=== PATIENT | female | born 1955 | race Caucasian/White ===

== ENCOUNTER → 2017-09-09 | Outpatient (CLI) | payer OTHER ==
--- NOTE | 2017-09-09 16:03 | MRI ---
MRI left shoulder without contrast INDICATION: Shoulder pain limited range of motion unable to raise arm date of onset not specified TECHNIQUE: Noncontrast MR imaging left shoulder standard protocol FINDINGS: Subscapularis is intact. No bicep rupture or dislocation. There is prominent glenohumeral effusion and synovitis/debris with filling defects/bodies anterior inferior into the subcoracoid recess region. There is tendinopathy of the supraspinatus and infraspinatus without complete rupture or retraction. Mild diffuse labral degeneration and fraying without displacement. Mild AC joint osteoarthrosis. There is chondral thinning throughout the glenohumeral joint with small osteophytes indicating developing glenohumeral osteoarthrosis. There is mild grade 1 marbling throughout the rotator cuff muscle bellies. Low-grade chronic interstitial partial tears throughout the rotator cuff tendons IMPRESSION: Large volume glenohumeral joint fluid with synovitis/debris/small bodies Rotator cuff tendinopathy and low-grade partial tears chronic without rupture or retraction Diffuse labral degeneration and fraying Mild glenohumeral osteoarthrosis Moderate AC joint osteoarthrosis Electronically signed by: Matty Lira MD 09/09/2017 4:01 PM CDT
== END ==
LOC: MRI 12:50
PROVIDERS: ATTEND Family Medicine
DX: M25.512 Pain in left shoulder (principal); M19.012 Primary osteoarthritis, left shoulder

== ENCOUNTER → 2018-11-24 | Outpatient (CLI) | payer BC | LOC: GMAE 11:37 | PROVIDERS: ATTEND Family Medicine | DX: Z00.01 Encounter for general adult medical examination with abnormal findings (principal) ==

== ENCOUNTER → 2020-03-02 | Outpatient (CLI) | payer BC, SELFPAY ==
--- NOTE | 2020-03-03 12:19 | MRI ---
EXAM DESCRIPTION: Brain w/o Contrast: MRI. CLINICAL HISTORY: MIGRAINE COMPARISON: None. TECHNIQUE: Multiplanar, high-field MRI unit, multiple diffusion sequences, multiple conventional sequences without contrast. FINDINGS: Bilateral symmetric hyperintense FLAIR and T2-weighted signal in the periventricular white matter and sub-cortical white matter cerebral lobes. No diffusion restriction. No hemorrhage, no cerebral edema, no midline shift.. Also involving the subcortical white matter vertices of the brain. Normal signal in the bilateral basal ganglia. Prominent perivascular spaces in the left basal ganglia. No hemorrhage, no cerebral edema, no mass-effect. No diffusion restriction. Normal signal in the brainstem and cerebellar hemispheres.. Concordance of the diffusion and non-diffusion sequences with no diffusion restriction. Cortical sulci, ventricles, and other CSF spaces, and the subdural spaces are normally configured for patient's age. No effacement or displacement. No midline shift. No extra-axial hemorrhage. Normal flow signal void in the major vessels of the [place], and the venous sinuses. IACs are symmetric bilaterally. Normal signal in the bilateral mastoid air cells. No mass effect in the bilateral cerebellopontine angles. Pituitary gland occupies approximately half of the sella. Base of the cerebellar tonsils is above the foramen magnum. Minimal bilateral mucoperiosteal thickening in the paranasal sinuses. The bony calvarium is intact. IMPRESSION: 1. Bilateral relatively symmetric lesions in the periventricular white matter and subcortical white matter beginning above the level of the basal ganglia extending into the bilateral subcortical white matter vertices. These findings are most likely related to cerebral microvascular disease than migraines. No intra-axial or extra-axial hemorrhage. No mass effect or midline shift no cerebral edema. 2. Normal noncontrast MR diffusion study with no evidence of significant recent ischemia, or acute or subacute infarction. 3. Mild paranasal chronic sinusitis. Electronically signed by: Matt Atkinson MD 03/03/2020 12:17 PM [facility]
== END ==
LOC: MRI 07:56
PROVIDERS: ATTEND Family Medicine
DX: G43.009 Migraine without aura, not intractable, without status migrainosus (principal); R90.82 White matter disease, unspecified; J32.9 Chronic sinusitis, unspecified

== ENCOUNTER → 2020-05-29 | Outpatient (CLI) | payer MEDICARE, OTHER | LOC: GMAE 16:48 | PROVIDERS: ATTEND Family Medicine | DX: E03.9 Hypothyroidism, unspecified (principal); I10 Essential (primary) hypertension; R73.01 Impaired fasting glucose; E78.2 Mixed hyperlipidemia ==